=== PATIENT | female | born 1930 | race Caucasian/White ===

== ENCOUNTER 2022-04-19 09:52 | Emergency (ER) | payer MEDICARE, BC ==
[2022-04-19] MEDS ORDERED: Sodium Chloride 0.9% 10 ML Syringe FLUSH PRN (10:30)
[2022-04-19 10:38] VITALS: BP 145/110; PULSE 92
[2022-04-19 11:40] LABS: CORONAVIRUS COVID-19 NAA POSITIVE (NEGATIVE)
[2022-04-19 12:28] LABS: ANION GAP 12.9 mEq/L (7-13)
== END 2022-04-19 12:23 | disposition home or self-care (01) ==
LOC: DL.ED 09:52
DX: U07.1 COVID-19 (principal); I11.0 Hypertensive heart disease with heart failure; I50.9 Heart failure, unspecified; I48.91 Unspecified atrial fibrillation; M10.9 Gout, unspecified; E66.9 Obesity, unspecified; Z68.35 Body mass index [BMI] 35.0-35.9, adult; Z86.73 Personal history of transient ischemic attack (TIA), and cerebral infarction without residual deficits; Z91.041 Radiographic dye allergy status; Z79.01 Long term (current) use of anticoagulants; Z79.82 Long term (current) use of aspirin; Z79.899 Other long term (current) drug therapy
CPT/HCPCS: 0240U; 36415; 71046; 80053; 83605; 83880; 85025; 86140; 87040; 87081; 87430; 99284

== ENCOUNTER 2022-08-08 08:04 | Emergency (ER) | payer MEDICARE, BC ==
[2022-08-08 08:21] VITALS: BP 118/77; PULSE 98
== END 2022-08-08 08:25 | disposition home or self-care (01) ==
LOC: DL.ED 08:04
DX: J02.9 Acute pharyngitis, unspecified (principal); I11.0 Hypertensive heart disease with heart failure; I50.9 Heart failure, unspecified; E66.9 Obesity, unspecified; Z68.38 Body mass index [BMI] 38.0-38.9, adult; Z91.041 Radiographic dye allergy status; Z79.899 Other long term (current) drug therapy; Z79.82 Long term (current) use of aspirin; Z90.710 Acquired absence of both cervix and uterus
CPT/HCPCS: 99282

== ENCOUNTER 2022-08-09 08:20 | Inpatient (IN) | payer MEDICARE, BC ==
[2022-08-09] MEDS ORDERED: methylPREDNISolone Sodium Succinate 125 MG/2 ML SDV IVPUSH ONE (08:29)
[2022-08-09] MEDS ORDERED: cefTRIAXone 2 GM in Sodium Chloride 0.9% 100 ML IV ONE (08:30)
[2022-08-09] MEDS ORDERED: Sodium Chloride 0.9% 1,000 ML IV ONE (08:30)
[2022-08-09] MEDS ORDERED: Metoprolol Tartrate 5 MG/5 ML SDV IVPUSH ONE (08:42)
[2022-08-09 09:16] LABS: ANION GAP 13.5 mEq/L (7-13)
[2022-08-09] MEDS ORDERED: Docusate Sodium 100 MG Cap PO PRN (12:13)
[2022-08-09] MEDS ORDERED: Ondansetron 4 MG/2 ML SDV IVPUSH PRN (12:13)
[2022-08-09] MEDS ORDERED: Acetaminophen 325 MG Tab PO PRN (12:13)
[2022-08-09] MEDS ORDERED: Acetaminophen/HYDROcodone 325-5 MG Tab PO PRN (12:13)
[2022-08-09] MEDS ORDERED: Sodium Chloride 0.9% 1,000 ML IV SCH (12:15)
[2022-08-09] MEDS ORDERED: cefTRIAXone 1 GM Vial IM SCH (12:30)
[2022-08-09 12:48] LABS: CORONAVIRUS COVID-19 NAA NEGATIVE (NEGATIVE)
[2022-08-09] MEDS: Piperacillin/Tazobactam 2.25 GM in Sodium Chloride 0.9% 50 ML IV SCH ×3 (14:18→23:40)
[2022-08-09] MEDS: Metoprolol Succinate 50 MG Tab.ER PO SCH (14:18)
[2022-08-10] MEDS ORDERED: amLODIPine 5 MG Tab PO ONE (00:08)
[2022-08-10] MEDS: Sodium Chloride 0.9% 10 ML Syringe FLUSH PRN ×2 (00:18→05:16)
[2022-08-10] MEDS: Piperacillin/Tazobactam 2.25 GM in Sodium Chloride 0.9% 50 ML IV SCH ×3 (05:17→17:47)
[2022-08-10 07:09] LABS: ANION GAP 12.7 mEq/L (7-13)
[2022-08-10] MEDS: Metoprolol Succinate 50 MG Tab.ER PO SCH (09:28)
[2022-08-10] MEDS: Furosemide 20 MG Tab PO SCH (12:53)
[2022-08-11] MEDS: Piperacillin/Tazobactam 2.25 GM in Sodium Chloride 0.9% 50 ML IV SCH ×5 (00:19→23:51)
[2022-08-11] MEDS: Levothyroxine 88 MCG Tab PO SCH (05:16)
[2022-08-11 07:03] LABS: ANION GAP 10.5 mEq/L (7-13)
[2022-08-11] MEDS ORDERED: Metoprolol Succinate 50 MG Tab.ER PO SCH (09:00)
[2022-08-11] MEDS ORDERED: Furosemide 20 MG Tab PO SCH (09:00)
[2022-08-11] MEDS: Metoprolol Succinate 50 MG Tab.ER PO SCH (09:26)
[2022-08-11] MEDS: amLODIPine 5 MG Tab PO SCH (09:27)
[2022-08-11] MEDS: Allopurinol 100 MG Tab PO SCH (09:27)
[2022-08-11] MEDS: Sodium Chloride 0.9% 10 ML Syringe FLUSH PRN ×2 (09:27→23:51)
[2022-08-11] MEDS: Furosemide 20 MG Tab PO SCH (09:27)
[2022-08-11] MEDS ORDERED: Lidocaine 2% Viscous Solution 15 ML UD PO PRN (10:57)
[2022-08-11] MEDS: guaiFENesin 600 MG Tab.ER PO PRN (13:25)
[2022-08-12] MEDS: guaiFENesin 600 MG Tab.ER PO PRN ×2 (00:28→18:11)
[2022-08-12] MEDS: Levothyroxine 88 MCG Tab PO SCH (05:31)
[2022-08-12] MEDS: Piperacillin/Tazobactam 2.25 GM in Sodium Chloride 0.9% 50 ML IV SCH ×4 (05:31→23:47)
[2022-08-12] MEDS: Sodium Chloride 0.9% 10 ML Syringe FLUSH PRN ×4 (05:31→23:47)
[2022-08-12 06:57] LABS: ANION GAP 10.1 mEq/L (7-13)
[2022-08-12] MEDS ORDERED: Potassium Chloride 10 MEQ Tab.ER PO ONE (09:19)
[2022-08-12] MEDS: Allopurinol 100 MG Tab PO SCH (09:53)
[2022-08-12] MEDS: Metolazone 2.5 MG Tab PO SCH (09:53)
[2022-08-12] MEDS: Metoprolol Succinate 50 MG Tab.ER PO SCH (09:54)
[2022-08-12] MEDS: Furosemide 20 MG Tab PO SCH (09:55)
[2022-08-12] MEDS: amLODIPine 5 MG Tab PO SCH (09:56)
[2022-08-12] MEDS: Saccharomyces Boulardii (Probiotic) 250 MG Cap PO SCH ×2 (12:10→21:27)
[2022-08-12] MEDS: Loperamide 2 MG Cap PO PRN ×2 (12:11→23:57)
[2022-08-12] MEDS: Potassium Chloride 10% 20 MEQ/15 ML Soln 15 ML UD Cup PO SCH ×2 (16:15→21:39)
[2022-08-12] MEDS ORDERED: Potassium Chloride 10% 20 MEQ/15 ML Soln 15 ML UD Cup PO SCH (18:00)
[2022-08-12] MEDS: Potassium Chloride 10 MEQ Tab.ER PO SCH (21:27)
[2022-08-13] MEDS: Levothyroxine 88 MCG Tab PO SCH (05:39)
[2022-08-13] MEDS: Piperacillin/Tazobactam 2.25 GM in Sodium Chloride 0.9% 50 ML IV SCH ×3 (05:40→18:36)
[2022-08-13] MEDS: Sodium Chloride 0.9% 10 ML Syringe FLUSH PRN (05:40)
[2022-08-13 09:06] LABS: ANION GAP 10.2 mEq/L (7-13)
[2022-08-13] MEDS: Potassium Chloride 10 MEQ Tab.ER PO SCH ×2 (09:24→18:38)
[2022-08-13] MEDS: Metoprolol Succinate 50 MG Tab.ER PO SCH (09:24)
[2022-08-13] MEDS: Saccharomyces Boulardii (Probiotic) 250 MG Cap PO SCH ×2 (09:24→21:03)
[2022-08-13] MEDS: Allopurinol 100 MG Tab PO SCH (09:24)
[2022-08-13] MEDS: Furosemide 20 MG Tab PO SCH (09:24)
[2022-08-13] MEDS: amLODIPine 5 MG Tab PO SCH (09:25)
[2022-08-13] MEDS ORDERED: Potassium Chloride 10 MEQ Tab.ER PO ONE (12:00)
[2022-08-14] MEDS: Piperacillin/Tazobactam 2.25 GM in Sodium Chloride 0.9% 50 ML IV SCH ×4 (00:19→17:09)
[2022-08-14 07:09] LABS: ANION GAP 11.7 mEq/L (7-13)
[2022-08-14] MEDS: Levothyroxine 88 MCG Tab PO SCH (07:50)
[2022-08-14] MEDS: Potassium Chloride 10 MEQ Tab.ER PO SCH ×2 (09:39→17:18)
[2022-08-14] MEDS: Metoprolol Succinate 50 MG Tab.ER PO SCH (09:40)
[2022-08-14] MEDS: amLODIPine 5 MG Tab PO SCH ×2 (09:41→16:34)
[2022-08-14] MEDS: Saccharomyces Boulardii (Probiotic) 250 MG Cap PO SCH ×2 (09:41→20:28)
[2022-08-14] MEDS: Allopurinol 100 MG Tab PO SCH (09:41)
[2022-08-14] MEDS: Furosemide 20 MG Tab PO SCH (09:41)
[2022-08-15] MEDS: Piperacillin/Tazobactam 2.25 GM in Sodium Chloride 0.9% 50 ML IV SCH ×4 (00:13→18:04)
[2022-08-15] MEDS: Levothyroxine 88 MCG Tab PO SCH (05:43)
[2022-08-15 06:48] LABS: ANION GAP 10.8 mEq/L (7-13)
[2022-08-15] MEDS: Furosemide 20 MG Tab PO SCH (08:36)
[2022-08-15] MEDS: Allopurinol 100 MG Tab PO SCH (08:36)
[2022-08-15] MEDS: Saccharomyces Boulardii (Probiotic) 250 MG Cap PO SCH ×2 (08:36→20:26)
[2022-08-15] MEDS: Potassium Chloride 10 MEQ Tab.ER PO SCH ×2 (08:36→18:04)
[2022-08-15] MEDS: Metoprolol Succinate 50 MG Tab.ER PO SCH (08:36)
[2022-08-15] MEDS: Metolazone 2.5 MG Tab PO SCH (08:36)
[2022-08-15] MEDS: amLODIPine 5 MG Tab PO SCH (08:37)
[2022-08-16] MEDS: Piperacillin/Tazobactam 2.25 GM in Sodium Chloride 0.9% 50 ML IV SCH ×3 (00:10→12:01)
[2022-08-16] MEDS: Levothyroxine 88 MCG Tab PO SCH (05:54)
[2022-08-16 07:25] LABS: ANION GAP 10.8 mEq/L (7-13)
[2022-08-16 07:58] VITALS: BP 146/77
[2022-08-16] MEDS: Saccharomyces Boulardii (Probiotic) 250 MG Cap PO SCH (09:28)
[2022-08-16] MEDS: Potassium Chloride 10 MEQ Tab.ER PO SCH (09:28)
[2022-08-16] MEDS: Allopurinol 100 MG Tab PO SCH (09:28)
[2022-08-16] MEDS: Furosemide 20 MG Tab PO SCH (09:28)
[2022-08-16] MEDS: amLODIPine 5 MG Tab PO SCH (09:28)
[2022-08-16] MEDS: Metoprolol Succinate 50 MG Tab.ER PO SCH (09:28)
[2022-08-16 09:29] VITALS: PULSE 82
== END 2022-08-16 13:00 | DRG 603 ==
LOC: DL.ED 08:20 → DL.MS 12:05 → OBSVTOIN 08-10 10:37 → UNDODISIN 08-12 16:45
PROVIDERS: ADMIT Internal Medicine; ATTEND Internal Medicine
DX: L03.221 Cellulitis of neck (principal); R65.10 Systemic inflammatory response syndrome (SIRS) of non-infectious origin without acute organ dysfunction; J02.9 Acute pharyngitis, unspecified; R13.10 Dysphagia, unspecified; I48.91 Unspecified atrial fibrillation; D72.825 Bandemia; I11.0 Hypertensive heart disease with heart failure; I50.9 Heart failure, unspecified; K52.9 Noninfective gastroenteritis and colitis, unspecified; K21.9 Gastro-esophageal reflux disease without esophagitis; M10.9 Gout, unspecified; M81.0 Age-related osteoporosis without current pathological fracture; E66.9 Obesity, unspecified; Z85.3 Personal history of malignant neoplasm of breast; Z79.01 Long term (current) use of anticoagulants; Z79.899 Other long term (current) drug therapy; Z79.890 Hormone replacement therapy; Z91.041 Radiographic dye allergy status; Z98.41 Cataract extraction status, right eye; Z98.42 Cataract extraction status, left eye; Z79.82 Long term (current) use of aspirin; Z91.14 Patient's other noncompliance with medication regimen; Z87.440 Personal history of urinary (tract) infections; Z86.73 Personal history of transient ischemic attack (TIA), and cerebral infarction without residual deficits; Z90.49 Acquired absence of other specified parts of digestive tract; Z90.710 Acquired absence of both cervix and uterus; Z90.13 Acquired absence of bilateral breasts and nipples; Z20.822 Contact with and (suspected) exposure to COVID-19; Z68.37 Body mass index [BMI] 37.0-37.9, adult
CPT/HCPCS: 0240U; 36415; 70490; 71045; 80048; 80053; 83605; 83880; 84484; 85025; 85027; 85610; 87040; 93005; 96361; 96365; 96375; 97161; 97165; 97530; 97535; 99223; 99232; 99238; 99285; 96366; 96367; A9270-GY; G0378; J0696; J2543; J2930; J3490; J7030